=== PATIENT | male | born 1995 | race Caucasian/White ===

== ENCOUNTER 2017-09-30 20:20 | Emergency (ER) | payer MEDICAID ==
[~2017-09-30] VITALS: Ht 165.1 cm; Wt 65.9 kg
[2017-09-30 20:55] VITALS: BP 143/68
== END 2017-09-30 23:43 | disposition left against medical advice (07) ==
LOC: EMS 20:28
DX: Z53.21 Procedure and treatment not carried out due to patient leaving prior to being seen by health care provider (principal)

== ENCOUNTER 2019-10-25 19:33 | Emergency (ER) | payer MEDICAID ==
[~2019-10-25] VITALS: Ht 167.6 cm; Wt 59.1 kg
[2019-10-25 19:35] VITALS: BP 139/94
[2019-10-25] MEDS ORDERED: LIDOCAINE 1% 10 ML VIAL INJ ONE (20:15)
[2019-10-25] MEDS ORDERED: BACITRACIN 0.9 GM PACKET OINTMENT TP ONE (20:15)
[2019-10-25] MEDS ORDERED: IBUPROFEN 600 MG TABLET PO ONE (20:15)
[2019-10-25] MEDS ORDERED: PERTUSS(ACELL),DIPH,TET VAC/PF 0.5 ML VIAL IM ONE (21:15)
== END 2019-10-25 21:35 | disposition home or self-care (01) ==
LOC: EMS 19:33
DX: S61.411A Laceration without foreign body of right hand, initial encounter (principal); S61.511A Laceration without foreign body of right wrist, initial encounter; S61.112A Laceration without foreign body of left thumb with damage to nail, initial encounter; W54.0XXA Bitten by dog, initial encounter; Y93.89 Activity, other specified; Y92.89 Other specified places as the place of occurrence of the external cause; Y99.8 Other external cause status
CPT/HCPCS: 12001; 90471; 90715; 99283; J3490

== ENCOUNTER 2019-11-25 16:59 | Emergency (ER) | payer MEDICAID | END 2019-11-25 18:44 | disposition home or self-care (01) | LOC: EMS 16:59 | DX: Z48.02 Encounter for removal of sutures (principal) ==

== ENCOUNTER 2020-10-18 11:24 | Emergency (ER) | payer MEDICAID ==
[~2020-10-18] VITALS: Ht 170.2 cm; Wt 63.6 kg
[2020-10-18] MEDS ORDERED: ACETAMINOPHEN 500 MG TABLET PO ONE (11:45)
[2020-10-18] MEDS ORDERED: IOVERSOL 350 MG/ML 100 ML VIAL ONE (13:37)
[2020-10-18] MEDS ORDERED: SODIUM CHLORIDE 0.9% 100 ML ONE (13:37)
[2020-10-18 13:39] LABS: BASOPHILS % (AUTO) 0.5 % (0.0-2.0); EOSINOPHILS % (AUTO) 1.3 % (1.0-6.0); HEMATOCRIT 44.8 % (41-53); HEMOGLOBIN 15.5 g/dL (13.5-17.5); LYMPHOCYTES # (AUTO) 1.5 K/uL (1.0-4.8); LYMPHOCYTES % (AUTO) 34.2 % (22.0-44.0); MEAN CORPUSCULAR HEMOGLOBIN 31.7 pg (26.0-34.0); MEAN CORPUSCULAR HGB CONC 34.7 G/dL (31.0-37.0); MEAN CORPUSCULAR VOLUME 92 fL (80-100); MONOCYTES # (AUTO) 0.3 K/uL (0.1-1.0); MONOCYTES % (AUTO) 6.8 % (2.0-9.0); NEUTROPHILS # (AUTO) 2.6 K/uL (1.8-7.7); NEUTROPHILS % (AUTO) 57.2 % (40.0-70.0); PLATELET COUNT (AUTO) 156 K/uL (150-450); RED CELL DISTRIBUTION WIDTH 12.7 % (11.5-14.5)
[2020-10-18 13:52] LABS: ANION GAP 9 mmol/L (8-16); CARBON DIOXIDE 27 mmol/L (22-29); CHLORIDE 105 mmol/L (98-107); CREATININE 0.65 mg/dL (0.60-1.30); GLOMERULAR FILTR. RATE CALC > 60 mL/min (>60); GLUCOSE,RANDOM 105 mg/dL (70-110); POTASSIUM 4.8 mmol/L (3.5-5.1); SODIUM SERUM 141 mmol/L (136-145); UREA NITROGEN, BLOOD 13 mg/dL (7-18)
[2020-10-18 13:58] LABS: ALANINE AMINOTRANSFERASE 25 U/L (12-78); ALBUMIN 4.4 g/dL (3.4-5.0); ALKALINE PHOSPHATASE 64 U/L (46-116); ASPARTATE AMINOTRANSFERASE 20 U/L (15-37); BILIRUBIN,TOTAL 1.9 mg/dL (0.1-1.0); TOTAL PROTEIN, SERUM 7.8 g/dL (6.4-8.2)
[2020-10-18] MEDS ORDERED: VANCOMYCIN HCL 1.5 GM in DEXTROSE 5%-WATER 250 ML IV ONE (16:15)
[2020-10-18] MEDS ORDERED: CefTRIAXone SODIUM 2 GM in DEXTROSE 5%-WATER 50 ML IV ONE (16:30)
[2020-10-18 17:16] LABS: COVID AG,FIA SOURCE NASOPHARYNGEAL
[2020-10-18 18:33] VITALS: BP 118/77
== END 2020-10-18 19:04 | disposition designated cancer center or children's hospital (05) ==
LOC: EMS 11:27
DX: H05.011 Cellulitis of right orbit (principal); Z20.822 Contact with and (suspected) exposure to COVID-19
CPT/HCPCS: 36415; 70450; 70481; 80053; 85025; 87426; 96365; 96366; 96367; 99285; J0696; J3370; J7050; J7060 ×2; Q9967

== ENCOUNTER 2021-12-14 08:23 | Emergency (ER) | payer MEDICAID ==
[~2021-12-14] VITALS: Ht 170.2 cm; Wt 63.6 kg
[2021-12-14 08:28] VITALS: BP 136/81
[2021-12-14] MEDS ORDERED: ONDA-104 PO (08:48)
[2021-12-14] MEDS ORDERED: NIRM1TAB5 PO (08:48)
== END 2021-12-14 09:07 | disposition home or self-care (01) ==
LOC: EMS 08:27
DX: U07.1 COVID-19 (principal); R11.2 Nausea with vomiting, unspecified; R50.9 Fever, unspecified
CPT/HCPCS: 99283

== ENCOUNTER 2022-08-12 18:16 | Emergency (ER) | payer OTHER ==
[~2022-08-12] VITALS: Ht 170.2 cm; Wt 63.6 kg
[~2022-08-12 18:16] MED LIST: NIRM1TAB5 PO; ONDA-104 PO
[2022-08-12] MEDS ORDERED: IBUPROFEN 600 MG TABLET PO ONE (19:30)
[2022-08-12 20:19] VITALS: BP 127/84
== END 2022-08-12 20:18 | disposition home or self-care (01) ==
LOC: EMS 18:26
DX: M54.59 Other low back pain (principal)
CPT/HCPCS: 72100; 99283